=== PATIENT | male | born 1965 ===

== ENCOUNTER 2017-01-21 22:26 | Emergency (ER) | payer MEDICARE ==
[2017-01-21 22:36] VITALS: BP 108/65; PULSE 98; RESP 20; TEMP 97.8; O2SAT 99
--- NOTE | 2017-01-21 22:53 | C.PDOC ---
History Of Present Illness 51 yo male come in for evaluation of laceration sustained few days ago that was closed at different ED. Pt reports, by accident pulled one stitch and now its open". Otherwise, pt denies wound redness, discharges, swelling, denies headache , dizziness, visual changes, denies any other active complaints. Ambulate to ED for evaluation, not in any apparent distress. Time Seen by Provider: 01/21/17 22:28 Chief Complaint (Nursing): Abnormal Skin Integrity History Per: Patient Past Medical History Reviewed: Historical Data, Nursing Documentation, Vital Signs Vital Signs: Last Vital Signs Temp 97.8 F 01/21/17 22:31 Pulse 98 H 01/21/17 22:31 Resp 20 01/21/17 22:31 BP 108/65 01/21/17 22:31 Pulse Ox 99 01/21/17 22:52 Family History: States: No Known Family Hx - Social History Hx Alcohol Use: No Hx Substance Use: No - Immunization History Hx Tetanus Toxoid Vaccination: Yes Review Of Systems Except As Marked, All Systems Reviewed And Found Negative. Constitutional: Negative for: Fever, Chills Eyes: Negative for: Vision Change ENT: Negative for: Ear Discharge, Nose Discharge Cardiovascular: Negative for: Chest Pain Respiratory: Negative for: Shortness of Breath Gastrointestinal: Negative for: Nausea, Vomiting, Abdominal Pain Genitourinary: Negative for: Incontinence Skin: Positive for: Lesions, Bruising Neurological: Negative for: Weakness, Numbness, Altered Mental Status, Headache , Dizziness Physical Exam - Physical Exam Appears: Well, Non-toxic, No Acute Distress Skin: Normal Color, Warm, Dry, Other (well healining laceration Right upper eyelid closed with absorbable sutures, no edema, no erythema, no wound discahrges.) Eye(s): bilateral: PERRL, EOMI (no pain or limitation on extraocular movement) , Other (trace ecchymoses infra-orbital B/L) Ear(s): Bilateral: Normal Nose: No Flaring Oral Mucosa: Moist, No Drooling Tongue: Normal Appearing Lips: Normal Appearing Throat: No Erythema, No Drooling Neck: Trachea Midline, No Midline Cervical Tenderness, No Paracervical Tenderness, No Step Off Deformity, Supple Cardiovascular: Rhythm Regular Respiratory: No Stridor, No Wheezing Gastrointestinal/Abdominal: Soft, No Tenderness, No Distention, No Guarding Extremity: Normal ROM, No Deformity, No Swelling Neurological/Psych: Oriented x3, Normal Speech ED Course And Treatment O2 Sat by Pulse Oximetry: 99 Pulse Ox Interpretation: Normal Progress Note: On re-eval, pt is afebrile, hemodynamicaly stable. Non-toxic. Ambulatory in ED with stable gait. Head: AT/NC. neck: SUpple. Neuorlogicaly intact. Pt advised on wound care. ref. to F/u with PMD as need for further eval and tx. Disposition Counseled Patient/Family Regarding: Diagnosis, Need For Followup - Disposition Referrals: [facility] [Outside] Disposition: HOME/ ROUTINE Disposition Time: 22:51 Condition: STABLE Additional Instructions: Clean wound daily for water APply antibiotic cream Follow up with pMD as need for further evaluation and treatment. return to ED if any new changes. Instructions: Care For Your Absorbable Stitches (ED) Forms: [employer] [facility] (Cam[place]onian) - Clinical Impression Clinical Impression: Healing laceration
== END 2017-01-21 22:57 | disposition home or self-care (01) ==
LOC: C.ER 22:26
DX: S01.111D Laceration without foreign body of right eyelid and periocular area, subsequent encounter (principal); X58.XXXD Exposure to other specified factors, subsequent encounter